=== PATIENT | female | born 1980 | race Hispanic/Latino ===

== ENCOUNTER → 2021-06-23 | Outpatient (CLI) | payer BC | LOC: MAMMO 06-13 09:46 | PROVIDERS: ATTEND Family Medicine | DX: N60.01 Solitary cyst of right breast (principal) | CPT/HCPCS: 77067 ==

== ENCOUNTER → 2021-07-13 | Outpatient (CLI) | payer BC | LOC: MAMMO 08:46 | PROVIDERS: ATTEND Family Medicine | DX: R92.8 Other abnormal and inconclusive findings on diagnostic imaging of breast (principal) | CPT/HCPCS: 77066 ==

== ENCOUNTER → 2022-07-25 | Outpatient (CLI) | payer BC | LOC: MAMMO 08:46 | PROVIDERS: ATTEND Family Medicine | DX: Z12.31 Encounter for screening mammogram for malignant neoplasm of breast (principal) | CPT/HCPCS: 77067 ==

== ENCOUNTER → 2022-08-10 | Outpatient (CLI) | payer BC | LOC: MRI 06:39 | PROVIDERS: ATTEND Family Medicine | DX: M25.612 Stiffness of left shoulder, not elsewhere classified (principal); X50.0XXA Overexertion from strenuous movement or load, initial encounter; R29.898 Other symptoms and signs involving the musculoskeletal system; S49.92XA Unspecified injury of left shoulder and upper arm, initial encounter ==